=== PATIENT | female | born 1990 | race Caucasian/White ===

== ENCOUNTER 2016-08-04 16:24 | Emergency (ER) | payer SELFPAY ==
--- NOTE | 2016-08-04 18:28 | ED NURSING NOTES ---
Clinical Report - Nurses [facility] [place] [address] 08/04/2016 16:25 [id number] Triage time 1636 PM. Acuity: LEVEL 3. Chief Complaint: ABDOMINAL PAIN. Alert. No acute distress. SEPSIS SCREEN: Sepsis Screen. Negative (no infection suspected/documented). HARVEY COMA SCORE: [place] Coma Scale: 15- eyes open spontaneously (4); best verbal response- oriented x 4 (5); best motor response- obeys commands (6). HEART TONES: heart tones present to the left upper quadrant (138). --16:56 Bel Vasquez R.N. 16:37 08/04/16. BP: 127/74. HR: 100. RR: 16. O2 saturation: 96%. Temp: 98.6 F (oral). Pain level now: 09/22. --16:56 Bel Vasquez R.N. Weight: 65.4 kg measured. Height/Length: 65 inches Per Patient. BMI: 24. --16:45 Bel Vasquez R.N. Medications Vitamins Oral. --16:38 Bel Vasquez R.N. Medication/allergy information source: the patient. --16:57 Bel Vasquez R.N. Allergies No Known Drug Allergy. --16:43 Bel Vasquez R.N. History Arrived by private vehicle. Historian: patient and family. Accompanied by family and friend. Primary physician ([facility]). ( Pt is 27 weeks traveling from [place] (lives in [place]) on vacation (has been here for about 1 week), pt states that on Thursday afternoon started having left lower quadrant pain, constant, denies any vomiting, diarrhea, chills, fevers, loss of appetite, denies any vaginal bleeding or cramping. Here for further evaluation). This is a new problem and onset was abrupt. Symptoms are constant and still present (3 days). She has had nausea and abdominal pain. No vomiting, diarrhea, constipation or fever. 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 PAST MEDICAL HX: Immunizations: up-to-date. Last normal menstrual period- 27 weeks. Sexual history - sexually active. No contraception. SOCIAL HX: Never smoker. No alcohol use or drug use. Recent travel by airplane in the last week- [place]. No infectious disease exposure. No known contact with a sick individual. ABUSE ASSESSMENT: No report of abuse. SELF HARM ASSESSMENT: A self harm assessment was performed. The patient answered "no" to the question "Do you have thoughts of harming or killing yourself?" and "Have you recently had thoughts about harming or killing others?". FALL RISK ASSESSMENT: Fall risk assessment completed. No fall risk identified. NUTRITIONAL RISK ASSESSMENT: The nutritional risk assessment revealed no deficiencies. FUNCTIONAL ASSESSMENT: Functional assessment: no impairments noted. LEARNING NEEDS ASSESSMENT: The learning needs assessment revealed no barriers. SKIN INTEGRITY ASSESSMENT: Skin integrity risk assessment completed. No skin integrity risk identified. --16:56 Bel Vasquez R.N. PROBLEMS: Nephrolithiasis. Cyst. --16:45 Bel Vasquez R.N. ADDITIONAL SURGERIES: Cyst removal. Laparoscopy. --16:45 Bel Vasquez R.N. Interventions ID band on patient. No allergy band on patient. --16:57 Bel Vasquez R.N. PHYSICAL ASSESSMENT Ambulatory to room. GENERAL / NEURO / PSYCH: Alert. Oriented X 4. HEENT: Mucous membranes are pink. RESPIRATORY: Respirations not labored. Breath sounds within normal limits. CVS: Capillary refill less than 2 seconds. GI / : Abdomen soft and nontender. SKIN: Skin is warm and dry. --17:30 Bel Vasquez R.N. NURSING PROGRESS NOTES The initial plan of care for this patient has been created This plan of care was discussed with the patient. Patient gowned. Warming measures: blanket applied. Reassurance given. Patient ID band checked for patient name, birthdate and medical record number: patient confirmed. Instructions provided to collect clean catch urine and patient verbalized understanding. Clean catch urine collected with return of yellow-colored clear urine; sample sent to lab for urinalysis. Specimen labeled in the presence of the patient. Patient identifiers checked. Call light placed in reach. Side rails up x 1. Bed placed in lowest position. Brakes of bed on. --16:57 Bel Vasquez R.N. Pulse oximeter and NIBP monitor placed on patient. Reassurance given. The patient is calm and resting quietly. Overall patient status is the same- she states feels the same. ( Pt hesitant on receiving IV fluids, educated on the benefits of fluids, still hesitant, no IV placed, blood drawn as ordered. US at bedside, comfort provided, Will monitor). GI / : Abdomen soft. SKIN: Skin is warm. Skin color within normal limits. --17:32 Bel Vasquez R.N. Reassurance given. The patient is calm and resting quietly. Overall patient status is the same- she states feels the same. GI / : The patient reports abdominal pain. Denies nausea or diarrhea. Call light placed in reach. Bed placed in lowest position. Brakes of bed on. --18:14 Bel Vasquez R.N. 18:13 08/04/16. BP: 116/74 (regular adult cuff) taken on the left arm, via an automated monitor, while lying. HR: 97. RR: 15. O2 saturation: 99% on room air. Pain level now: 7/10. Additional comments: does not want anything to treat the pain. --18:14 Bel Vasquez R.N. DISPOSITION / DISCHARGE Departure time: 1855 PM. The goals identified in the patient's plan of care were met. No learning barriers present. Discharge instructions provided and reviewed with the patient and family. Reviewed warnings (s/s of bleeding). Written instructions provided in [place]. No medication instructions, treatment instructions or referrals given to the patient. Patient did not verbalize understanding. The patient was discharged by the physician. She was discharged home and accompanied by spouse. She left the Emergency Department ambulatory and via private vehicle. Family member driving. FALL RISK ASSESSMENT: Fall risk assessment completed. No fall risk identified. HARVEY COMA SCORE: [place] Coma Scale: 15- eyes open spontaneously (4); best verbal response- oriented x 4 (5); best motor response- obeys commands (6). --22:15 Bel Vasquez R.N. 22:14 08/04/16. BP: 115/85. HR: 78. RR: 12. O2 saturation: 100%. Temp: 98.3 F (oral). Pain level now: 04/25. --22:15 Bel Vasquez R.N. Locked/Released at 08/04/2016 22:15 by Bel Vasquez R.N.
--- NOTE | 2016-08-04 18:28 | ED ORDER SUMMARY ---
..... Patient: PADMINI QUIROS OrderSheet [facility] VisitID: [id number] [place] [address] 26y, F Registration Date/Time: 08/04/2016 ORDER SHEET Weight: 65.4 kg (measured) Allergies: No Known Drug Allergy GENERAL ORDERS: US Pelvic Complete Urgent (16:57 08/04/2016 Nika Sahu) (Ack 16:58 LMuller) (Cancelled: Duplicate Order17:03 Nika Sahu) CBC w Diff Urgent (16:57 08/04/2016 Nika Sahu) (Ack 16:58 LMuller) (17:30 EHassan R.N.) CMP Urgent (16:57 08/04/2016 Nika Sahu) (Ack 16:58 LMuller) (17:30 EHassan R.N.) UA-Culture if indicated Urgent (16:57 08/04/2016 Nika Sahu) (Ack 16:58 LMuller) (17:30 EHassan R.N.) Serum Quantitative Urgent (16:57 08/04/2016 Nika Sahu) (Ack 16:58 LMuller) (17:30 EHassan R.N.) Pulse oximeter (16:57 08/04/2016 Nika Sahu) (17:30 EHassan R.N.) US OB Limited (> 6 mo ago) Urgent (17:02 08/04/2016 Nika Sahu) (Ack 17:06 LMuller) (17:30 EHassan R.N.) MEDICATION ORDERS: IV FLUIDS: IV NS : initial bolus 1000 mL (1000 mL/hr), then none - for X1 (NOW) (16:56 08/04/2016 Nika Sahu) (Cancelled: Patient [id number]:21 EHassan R.N.) ORDER SHEET NOTES: [Electronically signed by Bel Vasquez R.N. (22:15 08/04/2016)] [Electronically signed by Colton Eagle Dr. (03:11 08/11/2016)] [Electronically locked/signed by Bel Vasquez R.N. (22:15 08/04/2016)]
--- NOTE | 2016-08-04 18:28 | ED NURSING NOTES ---
Clinical Report - Nurses [facility] [place] [address] 08/04/2016 16:25 [id number] TRI[facility] Triage time 1636 PM. Acuity: LEVEL 3. Chief Complaint: ABDOMINAL PAIN. Alert. No acute distress. SEPSIS SCREEN: Sepsis Screen. Negative (no infection suspected/documented). HARVEY COMA SCORE: [place] Coma Scale: 15- eyes open spontaneously (4); best verbal response- oriented x 4 (5); best motor response- obeys commands (6). HEART TONES: heart tones present to the left upper quadrant (138). --16:56 Bel Vasquez R.N. 16:37 08/04/16. BP: 127/74. HR: 100. RR: 16. O2 saturation: 96%. Temp: 98.6 F (oral). Pain level now: 09/22. --16:56 Bel Vasquez R.N. Weight: 65.4 kg measured. Height/Length: 65 inches Per Patient. BMI: 24. --16:45 Bel Vasquez R.N. Medications Vitamins Oral. --16:38 Bel Vasquez R.N. Medication/allergy information source: the patient. --16:57 Bel Vasquez R.N. Allergies No Known Drug Allergy. --16:43 Bel Vasquez R.N. History Arrived by private vehicle. Historian: patient and family. Accompanied by family and friend. Primary physician ([facility]). ( Pt is 27 weeks traveling from [place] (lives in [place]) on vacation (has been here for about 1 week), pt states that on Thursday afternoon started having left lower quadrant pain, constant, denies any vomiting, diarrhea, chills, fevers, loss of appetite, denies any vaginal bleeding or cramping. Here for further evaluation). This is a new problem and onset was abrupt. Symptoms are constant and still present (3 days). She has had nausea and abdominal pain. No vomiting, diarrhea, constipation or fever. 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 PAST MEDICAL HX: Immunizations: up-to-date. Last normal menstrual period- 27 weeks. Sexual history - sexually active. No contraception. SOCIAL HX: Never smoker. No alcohol use or drug use. Recent travel by airplane in the last week- [place]. No infectious disease exposure. No known contact with a sick individual. ABUSE ASSESSMENT: No report of abuse. SELF HARM ASSESSMENT: A self harm assessment was performed. The patient answered "no" to the question "Do you have thoughts of harming or killing yourself?" and "Have you recently had thoughts about harming or killing others?". FALL RISK ASSESSMENT: Fall risk assessment completed. No fall risk identified. NUTRITIONAL RISK ASSESSMENT: The nutritional risk assessment revealed no deficiencies. FUNCTIONAL ASSESSMENT: Functional assessment: no impairments noted. LEARNING NEEDS ASSESSMENT: The learning needs assessment revealed no barriers. SKIN INTEGRITY ASSESSMENT: Skin integrity risk assessment completed. No skin integrity risk identified. --16:56 Bel Vasquez R.N. PROBLEMS: Nephrolithiasis. Cyst. --16:45 Bel Vasquez R.N. ADDITIONAL SURGERIES: Cyst removal. Laparoscopy. --16:45 Bel Vasquez R.N. Interventions ID band on patient. No allergy band on patient. --16:57 Bel Vasquez R.N. PHYSICAL ASSESSMENT Ambulatory to room. GENERAL / NEURO / PSYCH: Alert. Oriented X 4. HEENT: Mucous membranes are pink. RESPIRATORY: Respirations not labored. Breath sounds within normal limits. CVS: Capillary refill less than 2 seconds. GI / : Abdomen soft and nontender. SKIN: Skin is warm and dry. --17:30 Bel Vasquez R.N. NURSING PROGRESS NOTES The initial plan of care for this patient has been created This plan of care was discussed with the patient. Patient gowned. Warming measures: blanket applied. Reassurance given. Patient ID band checked for patient name, birthdate and medical record number: patient confirmed. Instructions provided to collect clean catch urine and patient verbalized understanding. Clean catch urine collected with return of yellow-colored clear urine; sample sent to lab for urinalysis. Specimen labeled in the presence of the patient. Patient identifiers checked. Call light placed in reach. Side rails up x 1. Bed placed in lowest position. Brakes of bed on. --16:57 Bel Vasquez R.N. Pulse oximeter and NIBP monitor placed on patient. Reassurance given. The patient is calm and resting quietly. Overall patient status is the same- she states feels the same. ( Pt hesitant on receiving IV fluids, educated on the benefits of fluids, still hesitant, no IV placed, blood drawn as ordered. US at bedside, comfort provided, Will monitor). GI / : Abdomen soft. SKIN: Skin is warm. Skin color within normal limits. --17:32 Bel Vasquez R.N. Reassurance given. The patient is calm and resting quietly. Overall patient status is the same- she states feels the same. GI / : The patient reports abdominal pain. Denies nausea or diarrhea. Call light placed in reach. Bed placed in lowest position. Brakes of bed on. --18:14 Bel Vasquez R.N. 18:13 08/04/16. BP: 116/74 (regular adult cuff) taken on the left arm, via an automated monitor, while lying. HR: 97. RR: 15. O2 saturation: 99% on room air. Pain level now: 7/10. Additional comments: does not want anything to treat the pain. --18:14 Bel Vasquez R.N. DISPOSITION / DISCHARGE Departure time: 1855 PM. The goals identified in the patient's plan of care were met. No learning barriers present. Discharge instructions provided and reviewed with the patient and family. Reviewed warnings (s/s of bleeding). Written instructions provided in Spanish. No medication instructions, treatment instructions or referrals given to the patient. Patient did not verbalize understanding. The patient was discharged by the physician. She was discharged home and accompanied by spouse. She left the Emergency Department ambulatory and via private vehicle. Family member driving. FALL RISK ASSESSMENT: Fall risk assessment completed. No fall risk identified. HARVEY COMA SCORE: [place] Coma Scale: 15- eyes open spontaneously (4); best verbal response- oriented x 4 (5); best motor response- obeys commands (6). --22:15 Bel Vasquez R.N. 22:14 08/04/16. BP: 115/85. HR: 78. RR: 12. O2 saturation: 100%. Temp: 98.3 F (oral). Pain level now: 04/25. --22:15 Bel Vasquez R.N. Locked/Released at 08/04/2016 22:15 by Bel Vasquez R.N.
--- NOTE | 2016-08-04 18:28 | ED ORDER SUMMARY ---
..... Patient: PADMINI QUIROS OrderSheet [facility] VisitID: [id number] [place] [address] 26y, F Registration Date/Time: 08/04/2016 ORDER SHEET Weight: 65.4 kg (measured) Allergies: No Known Drug Allergy GENERAL ORDERS: US Pelvic Complete Urgent (16:57 08/04/2016 Nika Sahu) (Ack 16:58 LMuller) (Cancelled: Duplicate Order17:03 Nika Sahu) CBC w Diff Urgent (16:57 08/04/2016 Nika Sahu) (Ack 16:58 LMuller) (17:30 EHassan R.N.) CMP Urgent (16:57 08/04/2016 Nika Sahu) (Ack 16:58 LMuller) (17:30 EHassan R.N.) UA-Culture if indicated Urgent (16:57 08/04/2016 Nika Sahu) (Ack 16:58 LMuller) (17:30 EHassan R.N.) Serum Quantitative Urgent (16:57 08/04/2016 Nika Sahu) (Ack 16:58 LMuller) (17:30 EHassan R.N.) Pulse oximeter (16:57 08/04/2016 Nika Sahu) (17:30 EHassan R.N.) US OB Limited (> 6 mo ago) Urgent (17:02 08/04/2016 Nika Sahu) (Ack 17:06 LMuller) (17:30 EHassan R.N.) MEDICATION ORDERS: IV FLUIDS: IV NS : initial bolus 1000 mL (1000 mL/hr), then none - for X1 (NOW) (16:56 08/04/2016 Nika Sahu) (Cancelled: Patient [id number]:21 EHassan R.N.) ORDER SHEET NOTES: [Electronically signed by Bel Vasquez R.N. (22:15 08/04/2016)] [Electronically signed by Colton Eagle Dr. (03:11 08/11/2016)] [Electronically locked/signed by Bel Vasquez R.N. (22:15 08/04/2016)]
--- NOTE | 2016-08-04 18:31 | DIAGNOSTIC IMAGING REPORT ---
PROCEDURE: US OB LIMITED INDICATION: RLQ ABDO PAIN AND 27 W PREG TECHNIQUE: Meyers scale and color Doppler sonographic images obtained of the gravid uterus. COMPARISON: None. FINDINGS: Single intrauterine with vertex presentation and posterior placenta without previa or abruptio. Heart rate 149 bpm. Amniotic fluid is unremarkable. Normal closed cervix. Diaphragm, stomach, kidneys and bladder are grossly normal. Symptomatic area corresponds to a 2.6 x 2.3 x 1.7 cm subserosal fibroid. IMPRESSION: 1. Single live intrauterine without placenta abruptio or previa 2. 2.6 cm subserosal fibroid corresponding to the symptomatic area
--- NOTE | 2016-08-04 18:32 | ED CLINICAL REPORT ---
Clinical Report - Physicians/Mid Levels [facility] [address] [place] [address] 08/04/2016 16:25 Patient: PADMINI QUIROS Time Seen: 1650. Arrived- By private vehicle. Historian- patient. HISTORY OF PRESENT ILLNESS Chief Complaint: ABDOMINAL PAIN. This started past 3 days and is still present. It was abrupt in onset and has been constant but is not gone now. No radiation. It is described as located in the left pelvis. At its maximum, severity described as moderate. When seen in the E.D., severity described as moderate. No loss of appetite, vomiting or diarrhea. No additional abdominal pain. (States she is about 27 weeks . Normal care. No abnormalities. Patient is a ). She has had recent travel- (Currently vacationing here. Patient originally from [place] Similar symptoms previously: None. Recent medical care: Not recently seen/assessed. REVIEW OF SYSTEMS All systems otherwise negative, except as recorded above. PAST HISTORY See nurses notes. Medications: Vitamins Oral. Allergies: No Known Drug Allergy. SOCIAL HISTORY Never smoker. No alcohol use or drug use. Recent travel- [place]. Visiting locally. ADDITIONAL NOTES The nursing notes have been reviewed. PHYSICAL EXAM Vital Signs: 08/04/2016 16:37 BP: 127/74. HR: 100. RR: 16. O2 saturation: 96%. Temp: 98.6 F. Pain level now: 7/10. Blood pressure normal. Oxygen saturation normal. Appearance: Alert. Oriented X3. No acute distress. (pleasant, cooperative,polite). Eyes: Pupils equal, round and reactive to light. Eyes normal inspection. No scleral icterus. ENT: Ears normal. Nose normal. Pharynx normal. Neck: Normal inspection. CVS: Normal heart rate and rhythm. Heart sounds normal. Pulses normal. Respiratory: No respiratory distress. Breath sounds normal. Chest nontender. Abdomen: Soft and nontender. (fundus palpated above theumbilicusbut below the xiphoid process). Skin: Skin warm and dry. Normal skin color. No rash. Normal skin turgor. Extremities: Extremities exhibit normal ROM. No lower extremity edema. LABS, X-RAYS, AND EKG Abdominal Sonogram: (OB limited. uterine fibroid. viable IUP.). The study was independently viewed by me and interpreted by the radiologist. The study was discussed with the radiologist (via pacs). Laboratory Tests: UA-Culture if indicated: (DONOVAN: 08/04/2016 16:40) ( [facility] 08/04/2016 17:27) Final results Test Result Flag Units (Reference) URINE COLOR YELLOW URINE APPEARANCE CLEAR URINE GLUCOSE NEGATIVE (NEGATIVE) URINE BILIRUBIN NEGATIVE (NEGATIVE) URINE KETONE NEGATIVE (NEGATIVE) URINE SPECIFIC GRAVITY 1.010 (1.010-1.030) URINE PH 7.0 (5.0-8.0) URINE PROTEIN NEGATIVE (NEGATIVE) URINE UROBILINOGEN 0.2 EU/dL (0.2-1.0) URINE NITRITE NEGATIVE (NEGATIVE) URINE BLOOD NEGATIVE (NEGATIVE) URINE LEUK ESTERASE NEGATIVE (NEGATIVE) URINE RBC NONE SEEN rbc/hpf (0-1) URINE WBC 0-1 wbc/hpf (0-1) URINE EPITHELIAL CELLS 1-3 EPI/hpf (0-5) URINE BACTERIA TRACE (<1+) (NONE SEEN) URINE COMMENT CULT NOT INDICATED 1+ AMORPHOUSURINE CULTURES ARE SET-UP BASED ON THE FOLLOWING CRITERIA:POSITIVE NITRITEPOSITIVE LEUKOCYTE ESTERASEGREATER THAN 10 WHITE BLOOD CELLSMODERATE (2+) OR GREATER BACTERIA CBC w Diff: (DONOVAN: 08/04/2016 17:28) ( [facility] 08/04/2016 17:46) Final results Test Result Flag Units (Reference) WHITE BLOOD COUNT 12.8 H K/uL (4.5-11.5) RED BLOOD COUNT 3.83 L M/uL (4.00-5.20) HEMOGLOBIN 11.3 L gm/dL (12.0-16.0) HEMATOCRIT 34.1 L % (36.0-46.0) MEAN CELL VOLUME 89 fL (80-100) MEAN CORPUSCULAR HGB 30 pg (26-34) MEAN CORPUSCULAR HGB CONC 33 g/dL (31-37) RED CELL DISTRIBUTION WIDTH 12.8 % (11.6-14.8) PLATELET COUNT 338 K/uL (150-400) NEUTROPHIL % 79.2 H % (50-75) LYMPH % 10.9 L % (25-40) MONO % 8.3 % (3-14) EOSINOPHIL % 1.3 % (0-4) BASOPHIL % 0.3 % (0-2) CMP: (DONOVAN: 08/04/2016 17:28) ( MsgRcvd 08/04/2016 18:13) Final results Test Result Flag Units (Reference) GLUCOSE 100 mg/dL (70-110) BUN 8 mg/dL (7-18) CREATININE 0.6 mg/dL (0.6-1.3) Estimated GFR >60 mL/min Estimated GFR- >60 mL/min Note: Persistent reduction over 3 months in eGFR<60 mL/min/1.73 m2 defines CKD. Patients with eGFR values>=60 mL/min/1.73 m2 may also have CKD if evidence ofpersistent proteinuria. Additional information may be foundat www.kidney.org. SODIUM 139 mmol/L (136-145) POTASSIUM 3.9 mmol/L (3.5-5.1) CHLORIDE 104 mmol/L (98-107) CARBON DIOXIDE 24 mmol/L (21-32) CALCIUM 8.7 mg/dL (8.5-10.1) TOTAL PROTEIN 6.8 g/dL (6.4-8.2) ALBUMIN 2.7 L g/dL (3.3-5.0) BILIRUBIN, TOTAL 0.4 mg/dL (0.0-1.0) ALKALINE PHOSPHATASE 93 U/L (46-116) AST (SGOT) 16 U/L (15-37) ALT (SGPT) 17 U/L (12-78) BETA HCG, QUANTITATIVE 6537 mIU/mL REFERENCE RANGE:Adult Males: <2 mIU/mLNon- Females: <6 mIU/mL Females:Approximate Approximate hCGGestational Age Range (mIU/mL) 0-1 week 0-501-2 weeks 40-3002-3 weeks 100-11124-9 weeks 500-71438-4 months 5,000-200,0002-3 months 10,000-100,0002nd trimester 3,000-50,0003rd trimester 1,000-50,000 . PROGRESS AND PROCEDURES Course of Care: the patient is a pleasant 26-year-old female presenting for evaluation of left lower quadrant abdominal pain. Patient is approximately 27 weeks per history. At this time differential diagnosis includes ovarian torsion, threatened , or urinary tract infection. Patient will be evaluated with ultrasound as well as laboratory studies. Patient is agreeable Urgently, and IV has been ordered for the patient, however patient declined the IV Patient is aware of the reason for an IV and understands the risks and benefits of having one placed. Of note, the history and physical examination was performed with a sampler radioactive waste Who is the patient's RN. The patient's workup was remarkable for the findings above. Do not fill patient is a surgical abdomen. Feel that this is the causes for the patient's abdominal pain at this time. No signs of distress noted on patient's examination. Patient's symptoms had improved while here in the emergency department. Had a discussion with the patient in regards to her workup here in the emergency department including diagnosis, home care, follow-up, and return precautions. All questions have been answered. The patient expressed understanding of these instructions and was agreeable to them. Repeat examination continues to be benign. Patient is stable outpatient candidate. Disposition: Discharged. Condition: good. CLINICAL IMPRESSION Acute left lower quadrant abdominal pain. 08/04/2016 18:13 BP: 116/74. HR: 97. RR: 15. O2 saturation: 99%. Pain level now: 7/10. Blood pressure normal. Oxygen saturation normal. Subserous uterine fibroid (left sided). INSTRUCTIONS Warnings: GENERAL WARNINGS: Return or contact your physician immediately if your condition worsens or changes unexpectedly, if not improving as expected, or if other problems arise. SPECIFICALLY, return if you develop pain, fever, vomiting, the inability to keep fluids down, blood in vomitus, blood in diarrhea, fainting, lightheadedness or vaginal bleeding. Your Current Medications: CONTINUE TAKING THE FOLLOWING MEDICATIONS: Vitamins Oral. OTC Medications: Tylenol (available over the counter): take according to label instructions. Follow-up: Return to the emergency department as needed. Follow up with a specialist your OB when you return home. Reason for referral: recheck today's concerns. Summary of care provided to patient via paper. Screening today revealed the patient's blood pressure to be in the normal range. The patient should follow up with a primary care provider for blood pressure management. Understanding of the discharge instructions verbalized by patient. (Electronically signed by Colton Eagle Dr. 08/11/2016 3:11)
--- NOTE | 2016-08-04 18:32 | ED CLINICAL REPORT ---
Clinical Report - Physicians/Mid Levels [facility] [address] [place] [address] 08/04/2016 16:25 Patient: PADMINI QUIROS Time Seen: 1650. Arrived- By private vehicle. Historian- patient. HISTORY OF PRESENT ILLNESS Chief Complaint: ABDOMINAL PAIN. This started past 3 days and is still present. It was abrupt in onset and has been constant but is not gone now. No radiation. It is described as located in the left pelvis. At its maximum, severity described as moderate. When seen in the E.D., severity described as moderate. No loss of appetite, vomiting or diarrhea. No additional abdominal pain. (States she is about 27 weeks . Normal care. No abnormalities. Patient is a ). She has had recent travel- (Currently vacationing here. Patient originally from [place].). Similar symptoms previously: None. Recent medical care: Not recently seen/assessed. REVIEW OF SYSTEMS All systems otherwise negative, except as recorded above. PAST HISTORY See nurses notes. Medications: Vitamins Oral. Allergies: No Known Drug Allergy. SOCIAL HISTORY Never smoker. No alcohol use or drug use. Recent travel- [place]. Visiting locally. ADDITIONAL NOTES The nursing notes have been reviewed. PHYSICAL EXAM Vital Signs: 08/04/2016 16:37 BP: 127/74. HR: 100. RR: 16. O2 saturation: 96%. Temp: 98.6 F. Pain level now: 7/10. Blood pressure normal. Oxygen saturation normal. Appearance: Alert. Oriented X3. No acute distress. (pleasant, cooperative,polite). Eyes: Pupils equal, round and reactive to light. Eyes normal inspection. No scleral icterus. ENT: Ears normal. Nose normal. Pharynx normal. Neck: Normal inspection. CVS: Normal heart rate and rhythm. Heart sounds normal. Pulses normal. Respiratory: No respiratory distress. Breath sounds normal. Chest nontender. Abdomen: Soft and nontender. (fundus palpated above theumbilicusbut below the xiphoid process). Skin: Skin warm and dry. Normal skin color. No rash. Normal skin turgor. Extremities: Extremities exhibit normal ROM. No lower extremity edema. LABS, X-RAYS, AND EKG Abdominal Sonogram: (OB limited. uterine fibroid. viable IUP.). The study was independently viewed by me and interpreted by the radiologist. The study was discussed with the radiologist (via pacs). Laboratory Tests: UA-Culture if indicated: (DONOVAN: 08/04/2016 16:40) ( [facility] 08/04/2016 17:27) Final results Test Result Flag Units (Reference) URINE COLOR YELLOW URINE APPEARANCE CLEAR URINE GLUCOSE NEGATIVE (NEGATIVE) URINE BILIRUBIN NEGATIVE (NEGATIVE) URINE KETONE NEGATIVE (NEGATIVE) URINE SPECIFIC GRAVITY 1.010 (1.010-1.030) URINE PH 7.0 (5.0-8.0) URINE PROTEIN NEGATIVE (NEGATIVE) URINE UROBILINOGEN 0.2 EU/dL (0.2-1.0) URINE NITRITE NEGATIVE (NEGATIVE) URINE BLOOD NEGATIVE (NEGATIVE) URINE LEUK ESTERASE NEGATIVE (NEGATIVE) URINE RBC NONE SEEN rbc/hpf (0-1) URINE WBC 0-1 wbc/hpf (0-1) URINE EPITHELIAL CELLS 1-3 EPI/hpf (0-5) URINE BACTERIA TRACE (<1+) (NONE SEEN) URINE COMMENT CULT NOT INDICATED 1+ AMORPHOUSURINE CULTURES ARE SET-UP BASED ON THE FOLLOWING CRITERIA:POSITIVE NITRITEPOSITIVE LEUKOCYTE ESTERASEGREATER THAN 10 WHITE BLOOD CELLSMODERATE (2+) OR GREATER BACTERIA CBC w Diff: (DONOVAN: 08/04/2016 17:28) ( [facility] 08/04/2016 17:46) Final results Test Result Flag Units (Reference) WHITE BLOOD COUNT 12.8 H K/uL (4.5-11.5) RED BLOOD COUNT 3.83 L M/uL (4.00-5.20) HEMOGLOBIN 11.3 L gm/dL (12.0-16.0) HEMATOCRIT 34.1 L % (36.0-46.0) MEAN CELL VOLUME 89 fL (80-100) MEAN CORPUSCULAR HGB 30 pg (26-34) MEAN CORPUSCULAR HGB CONC 33 g/dL (31-37) RED CELL DISTRIBUTION WIDTH 12.8 % (11.6-14.8) PLATELET COUNT 338 K/uL (150-400) NEUTROPHIL % 79.2 H % (50-75) LYMPH % 10.9 L % (25-40) MONO % 8.3 % (3-14) EOSINOPHIL % 1.3 % (0-4) BASOPHIL % 0.3 % (0-2) CMP: (DONOVAN: 08/04/2016 17:28) ( MsgRcvd 08/04/2016 18:13) Final results Test Result Flag Units (Reference) GLUCOSE 100 mg/dL (70-110) BUN 8 mg/dL (7-18) CREATININE 0.6 mg/dL (0.6-1.3) Estimated GFR >60 mL/min Estimated GFR- >60 mL/min Note: Persistent reduction over 3 months in eGFR<60 mL/min/1.73 m2 defines CKD. Patients with eGFR values>=60 mL/min/1.73 m2 may also have CKD if evidence ofpersistent proteinuria. Additional information may be foundat www.kidney.org. SODIUM 139 mmol/L (136-145) POTASSIUM 3.9 mmol/L (3.5-5.1) CHLORIDE 104 mmol/L (98-107) CARBON DIOXIDE 24 mmol/L (21-32) CALCIUM 8.7 mg/dL (8.5-10.1) TOTAL PROTEIN 6.8 g/dL (6.4-8.2) ALBUMIN 2.7 L g/dL (3.3-5.0) BILIRUBIN, TOTAL 0.4 mg/dL (0.0-1.0) ALKALINE PHOSPHATASE 93 U/L (46-116) AST (SGOT) 16 U/L (15-37) ALT (SGPT) 17 U/L (12-78) BETA HCG, QUANTITATIVE 6537 mIU/mL REFERENCE RANGE:Adult Males: <2 mIU/mLNon- Females: <6 mIU/mL Females:Approximate Approximate hCGGestational Age Range (mIU/mL) 0-1 week 0-501-2 weeks 40-3002-3 weeks 100-63341-6 weeks 500-17369-9 months 5,000-200,0002-3 months 10,000-100,0002nd trimester 3,000-50,0003rd trimester 1,000-50,000 . PROGRESS AND PROCEDURES Course of Care: the patient is a pleasant 26-year-old female presenting for evaluation of left lower quadrant abdominal pain. Patient is approximately 27 weeks per history. At this time differential diagnosis includes ovarian torsion, threatened , or urinary tract infection. Patient will be evaluated with ultrasound as well as laboratory studies. Patient is agreeable Urgently, and IV has been ordered for the patient, however patient declined the IV Patient is aware of the reason for an IV and understands the risks and benefits of having one placed. Of note, the history and physical examination was performed with a instructional services librarian Who is the patient's RN. The patient's workup was remarkable for the findings above. Do not fill patient is a surgical abdomen. Feel that this is the causes for the patient's abdominal pain at this time. No signs of distress noted on patient's examination. Patient's symptoms had improved while here in the emergency department. Had a discussion with the patient in regards to her workup here in the emergency department including diagnosis, home care, follow-up, and return precautions. All questions have been answered. The patient expressed understanding of these instructions and was agreeable to them. Repeat examination continues to be benign. Patient is stable outpatient candidate. Disposition: Discharged. Condition: good. CLINICAL IMPRESSION Acute left lower quadrant abdominal pain. 08/04/2016 18:13 BP: 116/74. HR: 97. RR: 15. O2 saturation: 99%. Pain level now: 7/10. Blood pressure normal. Oxygen saturation normal. Subserous uterine fibroid (left sided). INSTRUCTIONS Warnings: GENERAL WARNINGS: Return or contact your physician immediately if your condition worsens or changes unexpectedly, if not improving as expected, or if other problems arise. SPECIFICALLY, return if you develop pain, fever, vomiting, the inability to keep fluids down, blood in vomitus, blood in diarrhea, fainting, lightheadedness or vaginal bleeding. Your Current Medications: CONTINUE TAKING THE FOLLOWING MEDICATIONS: Vitamins Oral. OTC Medications: Tylenol (available over the counter): take according to label instructions. Follow-up: Return to the emergency department as needed. Follow up with a specialist your OB when you return home. Reason for referral: recheck today's concerns. Summary of care provided to patient via paper. Screening today revealed the patient's blood pressure to be in the normal range. The patient should follow up with a primary care provider for blood pressure management. Understanding of the discharge instructions verbalized by patient. (Electronically signed by Colton Eagle Dr. 08/11/2016 3:11)
--- NOTE | 2016-08-11 03:11 | ED MAR SUMMARY ---
..... Medication Administration Record [facility] [address], [place] [id number] Patient: PADMINI QUIROSRadha Visit ID: [id number] 26y, F Weight: 65.4 kg Height/Length: 65 in BMI: 24 ALLERGIES: No Known Drug Allergy
--- NOTE | 2016-08-11 03:11 | ED DISCHARGE INSTRUCTIONS ---
Patient: PADMINI QUIROS General Instructions [facility] VisitID: [id number] [place] [address] 26y, F Registration Date/Time: 08/04/2016 Acute left lower quadrant abdominal pain. 08/04/2016 18:13 BP: 116/74. HR: 97. RR: 15. O2 saturation: 99%. Pain level now: 7/10. Blood pressure normal. Oxygen saturation normal. Subserous uterine fibroid (left sided). INSTRUCTIONS Warnings: GENERAL WARNINGS: Return or contact your physician immediately if your condition worsens or changes unexpectedly, if not improving as expected, or if other problems arise. SPECIFICALLY, return if you develop pain, fever, vomiting, the inability to keep fluids down, blood in vomitus, blood in diarrhea, fainting, lightheadedness or vaginal bleeding. Your Current Medications: CONTINUE TAKING THE FOLLOWING MEDICATIONS: Vitamins Oral. OTC Medications: Tylenol (available over the counter): take according to label instructions. Follow-up: Return to the emergency department as needed. Follow up with a specialist your OB when you return home. Reason for referral: recheck today's concerns. Summary of care provided to patient via paper. Screening today revealed the patient's blood pressure to be in the normal range. The patient should follow up with a primary care provider for blood pressure management. Understanding of the discharge instructions verbalized by patient. ADDITIONAL INFORMATION Abdominal Pain, Unknown Cause (Female) The exact cause of your abdominal (stomach) pain is not certain. This does not mean that this is something to worry about, or the right tests were not done. Everyone likes to know the exact cause of the problem, but sometimes with abdominal pain, there is no clear-cut cause, and this could be a good thing. The good news is that your symptoms can be treated, and you will feel better. Your condition does not seem serious now; however, sometimes the signs of a serious problem may take more time to appear. For this reason,it is important for you to watch for any new symptoms, problems,or worsening of your condition. Over the next few days, the abdominal pain may come and go, or be continuous. Other common symptoms can include nausea and vomiting. Sometimes it can be difficult to tell if you feel nauseous, you may just feel bad and not associate that feeling with nausea. Constipation, diarrhea, and a fever may go along with the pain. The pain may continue even if treated correctly over the following days. Depending on how things go, sometimes the cause can become clear and may require further or different treatment. Additional evaluations, medications, or tests may be needed. Home care Your health care provider may prescribe medications for pain, symptoms, or an infection. Follow the health care provider's instructions for taking these medications. General care Rest until your next exam. No strenuous activities. Try to find positions that ease discomfort. A small pillow placed on the abdomen may help relieve pain. Something warm on your abdomen (such as a heating pad) may help, but be careful not to burn yourself. Diet Do not force yourself to eat, especially if having cramps, vomiting, or diarrhea. Water is important so you do not get dehydrated. Soup may also be good. Sports drinks may also help, especially if they are not too acidic. Make sure you don't drink sugary drinks as this can make things worse. Take liquids in small amounts. Do not guzzle them. Caffeine sometimes makes the pain and cramping worse. Avoid dairy products if you have vomiting or diarrhea. Don't eat large amounts at a time. Wait a few minutes between bites. Eat a diet low in fiber (called a low-residue diet). Foods allowed include refined breads, white rice, fruit and vegetable juices without pulp, tender meats. These foods will pass more easily through the intestine. Avoid whole-grain foods, whole fruits and vegetables, meats, seeds and nuts, fried or fatty foods, dairy, alcohol and spicy foods until your symptoms go away. Follow-up care Follow up with your health care provider as instructed, or if your pain does not begin to improve in the next 24 hours. When to seek medical care Seek prompt medical care if any of the following occur: Pain gets worse or moves to the right lower abdomen New or worsening vomiting or diarrhea Swelling of the abdomen Unable to pass stool for more than three days Fever of 100.4F (38C) or higher, or as directed by your healthcare provider. Blood in vomit or bowel movements (dark red or black color) Jaundice (yellow color of eyes and skin) Weakness, dizziness Chest, arm, back, neck or jaw pain Unexpected vaginal bleeding or missed period Call 911 Call emergency services if any of the following occur: Trouble breathing Confusion Fainting or loss of consciousness Rapid heart rate Seizure Uterine Fibroids Uterine fibroids are the most common non-cancerous tumors in women of childbearing age. A fibroid is a lump that forms within the wall of the uterus. Many women have no symptoms with fibroids. If symptoms occur, they can include: Heavy bleeding and painful periods Fullness or pressure in the lower abdomen Urinating often Pain during sex Lower back pain Infertility Usually, Fibroids Stop Growing Or Begin To Shrink After Menopause. Home Care: Maintain normal body weight for your height. Excess body weight can stimulate fibroid growth. Exercise can help control your weight. It also can decrease the production of hormones that stimulate fibroid growth. If you have abnormal or heavy menstrual bleeding, keep a log of your menstrual cycle. Show this to your doctor to help determine if it is related to fibroids or another cause. Fibroids can cause constipation and hemorrhoids. Avoid these problems by eating more whole grains, bran, and fruit and drink plenty of water. Natural laxative products may also help. You may use acetaminophen (Tylenol) or ibuprofen (Motrin, Advil) to control pain, unless another medicine was prescribed. [NOTE: If you have chronic liver or kidney disease or ever had a stomach ulcer or GI bleeding, talk with your doctor before using these medicines.] Follow Up with your doctor or as advised by our staff. You may require regular pelvic exams (every 6 months) to check for fibroid growth. If you are having symptoms, talk to your doctor about medical treatments that may be used to reduce fibroid size without surgery. Get Prompt Medical Attention if any of the following occur: Heavy periods (soaking through one pad an hour for three hours) Severe or prolonged pelvic or lower abdominal pain Vaginal bleeding with dizziness or fainting You have been given the following additional information: Abdominal Pain, Unknown Cause, (Female) Uterine Fibroids (Electronically signed by Colton Eagle Dr. 08/11/2016 3:11)
--- NOTE | 2016-08-11 03:11 | ED MED RECONCILIATION SUMMARY ---
Patient: PADMINI QUIROS Medication Reconciliation Report [facility] VisitID: [id number] [address] [place] [address] 26y, F Registration Date/Time: 08/04/2016 Weight: 65.4 kg Height/Length: 65 in. BMI: 24.0 ALLERGIES: No Known Drug Allergy The patient's Home Medications are listed below: CONTINUE TAKING THE FOLLOWING MEDICATIONS: Vitamins Oral The source(s) of the original Home Medication information: patient The following Medications were given to the patient in the Emergency Department: None. The following Medications were prescribed to the patient: Tylenol (available over the counter): take according to label instructions. -- Colton Eagle Dr.
--- NOTE | 2016-08-11 03:11 | ED MAR SUMMARY ---
..... Medication Administration Record [facility] [address], [place] [phone] Patient: PADMINI QUIROSRadha Visit ID: [id number] 26y, F Weight: 65.4 kg Height/Length: 65 in BMI: 24 ALLERGIES: No Known Drug Allergy
--- NOTE | 2016-08-11 03:11 | ED MED RECONCILIATION SUMMARY ---
Patient: PADMINI QUIROS Medication Reconciliation Report [facility] VisitID: [id number] [address] [place] [address] 26y, F Registration Date/Time: 08/04/2016 Weight: 65.4 kg Height/Length: 65 in. BMI: 24.0 ALLERGIES: No Known Drug Allergy The patient's Home Medications are listed below: CONTINUE TAKING THE FOLLOWING MEDICATIONS: Vitamins Oral The source(s) of the original Home Medication information: patient The following Medications were given to the patient in the Emergency Department: None. The following Medications were prescribed to the patient: Tylenol (available over the counter): take according to label instructions. -- Colton Eagle Dr.
== END 2016-08-04 18:53 | disposition home or self-care (01) ==
LOC: ED SRH 16:24 → EDBD 16:26 → ED SRH 16:26
DX: O34.13 Maternal care for benign tumor of corpus uteri, third trimester (principal); O99.89 Other specified diseases and conditions complicating pregnancy, childbirth and the puerperium; R10.32 Left lower quadrant pain; Z3A.27 27 weeks gestation of pregnancy
CPT/HCPCS: 90004; 90100; 90197; 95059